=== PATIENT | male | born 1985 | race Caucasian/White ===

== ENCOUNTER 2017-08-04 10:50 | Emergency (ER) | payer OTHER ==
[2017-08-04 10:59] VITALS: BP 144/81
== END 2017-08-04 14:26 | disposition home or self-care (01) ==
LOC: ED 10:50
DX: J06.9 Acute upper respiratory infection, unspecified (principal)

== ENCOUNTER 2017-08-14 15:15 | Emergency (ER) | payer OTHER ==
[~2017-08-14] VITALS: Ht 167.6 cm; Wt 117.9 kg
[2017-08-14 17:25] VITALS: BP 117/82
== END 2017-08-14 17:25 | disposition home or self-care (01) ==
LOC: ED 15:15
DX: G51.0 Bell's palsy (principal); H10.9 Unspecified conjunctivitis
CPT/HCPCS: J1885; J7512

== ENCOUNTER 2017-09-05 16:21 | Emergency (ER) | payer OTHER ==
[~2017-09-05] VITALS: Ht 167.6 cm; Wt 119.7 kg
[2017-09-05 19:32] VITALS: BP 123/69
== END 2017-09-05 19:32 | disposition home or self-care (01) ==
LOC: ED 16:21
DX: J02.8 Acute pharyngitis due to other specified organisms (principal); R51 Headache; B97.89 Other viral agents as the cause of diseases classified elsewhere
CPT/HCPCS: J1100; J1885

== ENCOUNTER 2017-09-25 09:51 | Emergency (ER) | payer OTHER ==
[~2017-09-25] VITALS: Ht 167.6 cm; Wt 116.2 kg
[2017-09-25 10:22] VITALS: BP 147/87
== END 2017-09-25 10:22 | disposition home or self-care (01) ==
LOC: ED 09:51
DX: B02.9 Zoster without complications (principal)